=== PATIENT | male | born 1965 | race Caucasian/White ===

== ENCOUNTER 2018-05-15 10:09 | Emergency (ER) | payer OTHER ==
--- NOTE | 2018-05-15 10:48 | RAD ---
PA AND LATERAL CHEST: History: Chest pain FINDINGS: Heart size and mediastinum within normal limits. The lungs are clear of infiltrate. No significant [place] findings. Lung apices are not entirely included on this film. IMPRESSION: No active intrathoracic disease. POS: [facility]
[2018-05-15 10:54] LABS: #Basophils 0.1 thou/uL (0.0-0.2); #Eosinphils 0.2 thou/uL (0.0-0.7); #Lymphocytes 1.6 thou/uL (1.20-3.40); #Monocytes 0.4 thou/uL (0.11-0.59); #Neutrophils 4.4 thou/uL (1.40-6.50); %Basophils 0.9 % (0.0-1.0); %Eosinophils 3.6 % (0.0-10.0); %Lymphocytes 23.7 % (21.0-51.0); %Monocytes 6.3 % (0.0-10.0); %Neutrophils 65.5 % (42.0-75.0); Hemoglobin 17.1 g/dL (14.0-18.0); Mean Corpuscular HGB CONC 34.9 g/dL (32.0-36.0); Mean Corpuscular Volume 88.8 fL (78.0-98.0); Mean Platelet Volume 7.7 fL (7.4-10.4); Platelet Count 264 thou/uL (130-400); RBC Distribution Width 12.3 % (11.5-14.5); Red Blood Cell (RBC) Count 5.52 mill/uL (4.70-6.10); White Blood Cell (WBC) Count 6.7 thou/uL (4.8-10.8)
[2018-05-15] MEDS ORDERED: cloNIDine 0.1 MG TAB ONE (11:05)
[2018-05-15 11:20] LABS: ALT (SGPT) 27 U/L (8-55); AST (SGOT) 24 U/L (5-34); Albumin 4.6 g/dL (3.5-5.0); Alkaline Phosphatase 77 U/L (40-150); Anion Gap 13 mmol/L (10-20); BUN (Urea Nitrogen) 16 mg/dL (8.4-25.7); Bilirubin, Total 0.6 mg/dL (0.2-1.2); CK (CPK) 74 U/L (30-200); CKMB 0.7 ng/mL (0-6.6); Calc. Creatinine Clearance 0 mL/min (70-130); Calcium 10.1 mg/dL (7.8-10.44); Carbon Dioxide 28 mmol/L (22-29); Chloride 106 mmol/L (98-107); Estimated GFR-MDRD 77; Globulin 3.1 g/dL (2.4-3.5); Glucose 101 mg/dL (70-105); Lipase 70 U/L (8-78); Potassium 4.7 mmol/L (3.5-5.1); Protein, Total 7.7 g/dL (6.0-8.3); Sodium 142 mmol/L (136-145); Troponin I Less than 0.010 ng/mL (< 0.028)
[2018-05-15] MEDS ORDERED: HYDROcodone/Acetaminophen 5/325 mg Tablet ONE (12:14)
[2018-05-15 14:03] LABS: Troponin I Less than 0.010 ng/mL (< 0.028)
== END 2018-05-15 14:23 | disposition home or self-care (01) ==
LOC: ERS 10:09
DX: M25.512 Pain in left shoulder (principal); I10 Essential (primary) hypertension; I48.91 Unspecified atrial fibrillation; F41.9 Anxiety disorder, unspecified; Z79.899 Other long term (current) drug therapy
CPT/HCPCS: 36415; 71046; 80053; 82550; 82553; 83690; 84484; 85025; 93005

== ENCOUNTER 2019-01-25 11:59 | Outpatient (CLI) | payer OTHER ==
--- NOTE | 2019-01-25 13:08 | RAD ---
THORACIC SPINE THREE VIEWS: HISTORY: Back pain. Fell last night. FINDINGS: Vertebral bodies are normal in height. Degenerative osteophytes are seen. No compression fracture i s visualized. Pedicles appear intact. IMPRESSION: Arthritic changes of the spine. POS: [facility]
--- NOTE | 2019-01-25 13:09 | RAD ---
LUMBAR SPINE SERIES TWO VIEWS: HISTORY: Back pain status post fall. FINDINGS: Vertebral bodies are normal in height. Disk spaces all appear relatively well preserved with degener ative osteophytes present. Pedicles are intact. Vascular calcifications are noted. IMPRESSION: Mild arthritic changes of the spine. No acute findings. POS: [facility]
== END 2019-01-25 12:00 | disposition home or self-care (01) ==
LOC: BICRAD 11:59
PROVIDERS: ATTEND Family Medicine
DX: M54.5 Low back pain (principal); M54.6 Pain in thoracic spine; M46.96 Unspecified inflammatory spondylopathy, lumbar region; M46.94 Unspecified inflammatory spondylopathy, thoracic region
CPT/HCPCS: 72072; 72100

== ENCOUNTER 2024-07-02 09:51 | Outpatient (CLI) | payer OTHER | END 2024-07-02 09:52 | disposition home or self-care (01) | LOC: SCSRAD 09:51 | PROVIDERS: ATTEND Family Medicine | DX: R07.81 Pleurodynia (principal) ==